=== PATIENT | male | born 1940 | race Caucasian/White ===

== ENCOUNTER 2019-06-11 19:24 | Emergency (ER) | payer MEDICARE, OTHER, SELFPAY ==
[2019-06-11] VITALS (12 sets, daily range): BP systolic 116–162; BP diastolic 48–65; PULSE 60–67; RESP 10–22; TEMP 36.5; O2SAT 97–100; BMI 37.5
--- NOTE | 2019-06-11 20:53 | PC.NURSE ---
PT states accidently took one weeks worth of 2 different heart medications. Approx 7-8tabs of 25mg Hydralazine, 7-8 tabs 20mg Isosorbide Dinitrate. Denies CP, palpitations, SOB or pain. Pt states in NAD and has no complaints. Family at bedside.
--- NOTE | 2019-06-11 20:54 | ED.GENADULT ---
HPI - General Adult General Chief complaint: Toxicology Problem Stated complaint: Took too much heart medication Time Seen by Provider: 06/11/19 20:39 Source: patient Mode of arrival: Ambulatory History of Present Illness HPI narrative: 79-year-old male here for evaluation after he accidentally took 7-8 tabs each of 25 mg of hydralazine and 20 mg of isosorbide. Took these approximately 30 minutes prior to coming to the emergency department. Patient states that it was an accident. He states he was unsure exactly what medicines he was taking. He states that he thought they were his nightly medication and all different. He reports that he is somewhat lightheaded compared normal otherwise no other symptoms. Related Data Home Medications Medication Instructions Recorded Confirmed acetaminophen #0 10/02/17 aspirin 81 mg PO QDAY #0 10/02/17 carvedilol [Coreg] #0 10/02/17 coenzyme Q10 [Co Q-10] #0 10/02/17 diphenhydramine HCl [Benadryl #0 10/02/17 Allergy] eplerenone #0 10/02/17 furosemide 40 mg PO QDAY #0 10/02/17 glimepiride [Amaryl] #0 10/02/17 latanoprost 1 drp OPHTH HS #0 10/02/17 methotrexate sodium 20 mg PO QWEEK #0 10/02/17 sacubitril-valsartan [Entresto] 1 ea PO #0 10/02/17 Previous Rx's Medication Instructions Recorded cephalexin [Keflex] 1,000 mg PO BID #40 cap 10/02/17 Allergies Allergy/AdvReac Type Severity Reaction Status Date / Time No Known Drug Allergies Allergy Unknown Unverified 10/29/17 12:25 [NO KNOWN DRUG ALLERGIES] atorvastatin [ATORVASTATIN] AdvReac Mild MUSCLE Unverified 10/29/17 12:25 CRAMPS lisinopril [LISINOPRIL] AdvReac Mild MUSCLE Unverified 10/29/17 12:25 CRAMPS lovastatin [LOVASTATIN] AdvReac Mild MUSCLE Unverified 10/29/17 12:25 CRAMPS pravastatin [PRAVASTATIN] AdvReac Mild MUSCLE Unverified 10/29/17 12:25 CRAMPS simvastatin [SIMVASTATIN] AdvReac Mild MUSCLE Unverified 10/29/17 12:25 CRAMPS Review of Systems Constitutional Constitutional: Denies fever(s) and Denies headache(s) ENT Ears, Nose, Mouth, and Throat: Denies headache(s) and Denies disequilibrium Cardiovascular Cardiovascular: Denies chest pain and Denies dyspnea Respiratory Respiratory: Denies cough and Denies dyspnea Gastrointestinal Gastrointestinal: Denies abdominal pain, Denies nausea and Denies vomiting Musculoskeletal Musculoskeletal: Denies myalgias and Denies arthralgias Integumentary/Breasts Skin/Breast: Denies lesions and Denies rash Neurologic Neurologic: Denies headache(s) and Denies disequilibrium Comments: Lightheaded Patient History Medical History Congestive heart failure (Acute) Diabetes (Acute) Social History Smoking Status: Former smoker Substance Use Type: does not use Exam Initial Vital Signs Initial Vital Signs: Vital Signs Temperature 97.7 F 06/11/19 19:30 Pulse Rate 66 06/11/19 19:30 Respiratory Rate 10 L 06/11/19 19:30 Pulse Oximetry 97 06/11/19 19:30 Const General: cooperative and comfortable Orientation: alert, awake and oriented x3 HENMT Head: normal to inspection and normocephalic Resp Effort & Inspection: normal respiratory effort Auscultation: clear to auscultation bilaterally Cardio Rate: regular rate Rhythm: regular rhythm Skin Lesions: no lesions Rashes: no rashes Neuro General: alert, awake and oriented x3 Cognition: normal cognition Speech: speech normal Extrem General: normal to inspection and capillary refill normal Psych Appearance: well kempt Scores GCS [place] coma scale eye opening: Spontaneous Beth coma scale verbal response: Orientated Beth coma scale motor response: Obey commands Beth coma scale total score: 15 Course Orders Ordered: ED Orders 06/11/19 19:34 EKG-12 Lead Stat Vital Signs Vital signs: Vital Signs - 8 hr 06/11/19 19:30 06/11/19 20:45 06/11/19 21:00 Temperature 97.7 F Pulse Rate 66 61 67 Respiratory Rate 10 L 20 16 Blood Pressure [Left Arm] 134/53 L 117/53 L Pulse Oximetry 97 100 06/11/19 21:36 06/11/19 21:48 06/11/19 22:04 Temperature Pulse Rate 61 60 60 Respiratory Rate 22 16 14 Blood Pressure [Left Arm] 118/58 L 135/65 131/53 L Pulse Oximetry 98 99 100 06/11/19 22:17 06/11/19 22:33 06/11/19 22:45 Temperature Pulse Rate 60 60 60 Respiratory Rate 14 17 17 Blood Pressure [Left Arm] 123/53 L 116/53 L 126/55 L Pulse Oximetry 100 100 06/11/19 23:02 06/11/19 23:18 06/11/19 23:35 Temperature Pulse Rate 66 60 Respiratory Rate 11 L 16 Blood Pressure [Left Arm] 120/59 L 162/52 H 123/48 L Pulse Oximetry 100 100 Medical Decision Making ECG Data Attestation: I personally reviewed and interpreted this ECG as follows: Prior ECG tracings: not available for review Interpretation: Atrial paced Rate is 66 MDM Narrative Medical decision making narrative: I did discuss the case with poison Control who stated there were no defined time lines as to how long the patient should be evaluated with these medications. They did recommend 4-6 hours for longer if the patient had any symptoms. Patient did have a systolic blood pressures in the 110's had after approximately 4 hours observation without dropping below this he was able to ambulate without any problems and had a systolic blood pressure in the 160s. Will discharge home. Patient was instructed that he should check his blood pressure in the morning before he takes any of his other medications. He is given return precautions and follow-up instructions. He expressed understanding and agreement plan. Discharge Plan Departure Patient Disposition: Home Clinical Impression: Accidental medication overdose Qualifiers: Encounter type: initial encounter Qualified Code(s): T50.901A - Poisoning by unspecified drugs, medicaments and biological substances, accidental (unintentional), initial encounter Discharge Date/Time: 06/11/19 23:30 Instructions: Dos and Don'ts for Prescription Medications Activity Restrictions/Additional Instructions: Recommend that in the morning for taking any of your blood pressure medications you take your blood pressure. If the top number is less than 140 do not take any of your blood pressure medicines. If it is greater than 140 take your medications as directed. You can take your other medications as directed. Contact your primary provider for follow-up Prescriptions: No Action furosemide 40 MG tablet 40 mg PO QDAY Qty: 0 RF: 0 carvedilol [Coreg] 12.5 MG tablet Qty: 0 RF: 0 sacubitril-valsartan [Entresto] 49 MG/51 MG tablet 1 ea PO Qty: 0 RF: 0 glimepiride [Amaryl] 4 MG tablet Qty: 0 RF: 0 methotrexate sodium 2.5 MG tablet 20 mg PO QWEEK Qty: 0 RF: 0 eplerenone 25 MG tablet Qty: 0 RF: 0 latanoprost 0.005 % drops 1 drp OPHTH HS Qty: 0 RF: 0 diphenhydramine HCl [Benadryl Allergy] 25 MG tablet Qty: 0 RF: 0 aspirin 81 MG tablet,chewable 81 mg PO QDAY Qty: 0 RF: 0 acetaminophen 325 MG tablet Qty: 0 RF: 0 coenzyme Q10 [Co Q-10] 100 MG capsule Qty: 0 RF: 0 cephalexin [Keflex] 500 MG capsule 1,000 mg PO BID Qty: 40 RF: 0
== END 2019-06-11 23:30 | disposition home or self-care (01) ==
PROVIDERS: Emergency Provider Emergency Medicine
DX: T50.901A Poisoning by unspecified drugs, medicaments and biological substances, accidental (unintentional), initial encounter (principal); R07.9 Chest pain, unspecified
CPT/HCPCS: 93005; 99283; 99284

== ENCOUNTER → 2022-10-02 14:07 | Outpatient (CLI) | payer OTHER, SELFPAY ==
--- NOTE | 2022-10-03 15:38 | P.PFT.S_ITS ---
Pulmonary Function Test Referral & Results Date Patient Seen: 10/02/22 Results: The spirometry demonstrates an FVC of 3.76 L which is 89% of predicted. The FEV1 was measured at 2.43 L which is 81% of predicted. The FEV1/FVC ratio was 65 which is 90% of predicted. Following the administration of bronchodilator there was no notable change. Lung volumes show an SVC of 3.68 L which is 79% of predicted. The diffusing capacity was measured at 23.62 which is 67% of predicted. No hemo globin value was provided, so no correction for potential anemia could be made, if appropriate. The maximum voluntary ventilation was normal Interpretation: This study demonstrates probably normal spirometry. The maybe a very minimal reduction in FEV1 suggesting the possibility of very minimal obstructive lung disease but I would call this normal There is a mild reduction in diffusing capacity suggesting element of disease at the capillary alveolar level Clinical correlation suggested
== END ==
PROVIDERS: Referring Provider Nurse Practitioner Adult Health; Visit Provider Nurse Practitioner Adult Health
DX: R06.00 Dyspnea, unspecified (principal); Z87.891 Personal history of nicotine dependence; J98.8 Other specified respiratory disorders
CPT/HCPCS: 94060; 94726; 94729